=== PATIENT | female | born 1995 | race Caucasian/White ===

== ENCOUNTER 2020-07-23 18:58 | Emergency (ER) | payer MEDICAID ==
[~2020-07-23] VITALS: Ht 162.6 cm; Wt 55.3 kg
[2020-07-23 19:02] VITALS: BP 131/75
--- NOTE | 2020-07-23 19:11 | NUR ---
25 YO/F BIB SELF W C/O SHARP LOWER BACK PAIN 10/12 THAT RADIATES TO R LOWER ABDOMEN X1 DAY ACCOMPANIED BY HEADACHE "DUE TO BACK PAIN," AND FEVER AND CHILLS X1 DAY. PATIENT TRIED USING A PAIN RELIEF PATCH TO HER BACK WHICH DID NOT HELP WITH THE PAIN. DENIES ANY BACK INJURY. PATIENT REPORTS EXPERIENCING NAUSEA. DENIES VOMITING OR DIARRHEA. BOWEL SOUNDS PRESENT IN ALL 4 QUADRANTS. PATIENT PRESENTS W SINUS TACHYCARDIA. S1S2 PRESENT. PATIENT A0X4. PATIENT SITTING IN BED LOCKED IN LOWEST POSITION, X1 SIDERAIL UP. NO ACUTE DISTRESS NOTED. PMH:DENIES NKA
--- NOTE | 2020-07-23 19:15 | NUR ---
PT AMBULATED TO BED 07.
--- NOTE | 2020-07-23 19:16 | NUR ---
ERMD AT BEDSIDE ASSESSING PATIENT.
[2020-07-23] MEDS ORDERED: NACL 0.9% 1,000 ML IV SCH (19:20)
[2020-07-23] MEDS ORDERED: KETOROLAC 30 MG/ML VIAL IVP ONE (19:20)
[2020-07-23] MEDS ORDERED: ONDANSETRON 4 MG/2 ML VIAL IVP ONE (19:20)
--- NOTE | 2020-07-23 19:25 | NUR ---
LABS COLLECTED AND HANDED TO CAT FROM [facility].
[2020-07-23 19:34] LABS: HEMATOCRIT 41.1 % (36-48); LYMPHOCYTES # (AUTO) 0.5 K/uL (2.5-16.5); LYMPHOCYTES % (AUTO) 3.9 % (20.5-51.1); MEAN CORPUSCULAR HEMOGLOBIN 29 pg (27-31); MEAN CORPUSCULAR HGB CONC 34 g/dL (33-37); MEAN CORPUSCULAR VOLUME 85.4 fL (80-94); MONOCYTES # (AUTO) 1.1 K/uL (0.8-1.0); MONOCYTES % (AUTO) 7.9 % (1.7-9.3); NEUTROPHILS # (AUTO) 11.8 K/uL (1.8-7.7); NEUTROPHILS % (AUTO) 88.2 % (42.2-75.2); PLATELET COUNT (AUTO) 314 K/uL (140-450); RED BLOOD CELL COUNT(AUTO) 4.81 MIL/uL (4.20-5.40); WHITE BLOOD COUNT (AUTO) 13.4 K/uL (4.8-10.8)
[2020-07-23 19:53] LABS: ANION GAP 16.2 (8-16); CARBON DIOXIDE 23.9 mmol/L (21-32); CREATININE 1.1 mg/dL (0.6-1.3); POTASSIUM 3.1 mmol/L (3.5-5.1); TOTAL BILIRUBIN 1.3 mg/dL (0.0-1.0)
--- NOTE | 2020-07-23 19:58 | NUR ---
PATIENT TAKEN TO CT.
--- NOTE | 2020-07-23 20:09 | NUR ---
PATIENT BACK FROM CT.
[2020-07-23 20:20] LABS: BILIRUBIN,URINE 1+ (NEGATIVE); BLOOD, URINE 3+ (NEGATIVE); COLOR,URINE YELLOW (YELLOW); LEUKOCYTE ESTERASE ,URINE 2+ (NEGATIVE); NITRITE, URINE NEGATIVE (NEGATIVE); UGLUCOSE NEGATIVE (NEGATIVE)
[2020-07-23 20:25] LABS: APPEARANCE,URINE HAZY (CLEAR)
[2020-07-23 20:30] LABS: RBC,URINE 0-5 /HPF (0-5); WBC,URINE 20-60 /HPF (0-5)
[2020-07-23] MEDS ORDERED: ONDA8TAB87 PO (21:00)
[2020-07-23] MEDS ORDERED: CIPR500T4 PO (21:00)
[2020-07-23] MEDS ORDERED: IBUP-2213 PO (21:00)
[2020-07-23 21:11] VITALS: BP 110/70
--- NOTE | 2020-07-23 21:11 | NUR ---
Patient discharged with v/s stable. Written and verbal after care instructions given and explained. Patient alert, oriented and verbalized understanding of instructions. Ambulatory with steady gait. All questions addressed prior to discharge. ID band removed. Patient advised to follow up with PMD. Rx of CIPRO, IBUPROFEN, ZOFRAN given. Patient educated on indication of medication including possible reaction and side effects. Opportunity to ask questions provided and answered.
== END 2020-07-23 21:11 | disposition home or self-care (01) ==
LOC: MED 18:58
DX: N12 Tubulo-interstitial nephritis, not specified as acute or chronic (principal); M54.5 Low back pain; R11.0 Nausea
CPT/HCPCS: 36415; 74177; 80053; 81001; 81025; 83690; 85025; 87086; 96361; 96374; 96375; 99285; J1885; J2405; J7030; Q9967